=== PATIENT | female | born 1965 | race Caucasian/White ===

== ENCOUNTER 2021-01-13 11:26 | Day surgery (SDC) | payer BC ==
[2021-01-09 14:14] VITALS: BMI 28.5
[2021-01-13] MEDS ORDERED: BUPIVACAINE HCL 100 ML ONE (11:51)
[2021-01-13] MEDS ORDERED: LIDOCAINE HCL 2% (20ML MULTI-DOSE VIAL) ONE (11:51)
[2021-01-13] MEDS ORDERED: PROPOFOL 20 ML ONE ×2 (12:50)
[2021-01-13] MEDS ORDERED: MIDAZOLAM HCL 2 MG/2 ML SINGLE DOSE VIAL ONE (12:50)
[2021-01-13] MEDS ORDERED: oxyCODONE HCL 5 MG TABLET PO PRN ×2 (14:48)
[2021-01-13] MEDS ORDERED: PROMETHAZINE HCL 25 MG/1 ML VIAL IVPUSH PRN (14:48)
[2021-01-13] MEDS ORDERED: ONDANSETRON 4 MG/2 ML VIAL IVPUSH PRN (14:48)
[2021-01-13 15:12] VITALS: PULSE 60
[2021-01-13 15:21] VITALS: BP 115/67; TEMP 97
== END 2021-01-13 15:55 | disposition home or self-care (01) ==
LOC: FASU 11:26
PROVIDERS: ATTEND Podiatrist Foot Surgery
PROC: 3E0U3BZ Introduction of Anesthetic Agent into Joints, Percutaneous Approach (ICD-10-PCS; 2021-01-13)
PROC: 0QSN04Z Reposition Right Metatarsal with Internal Fixation Device, Open Approach (ICD-10-PCS; principal; 2021-01-13 13:14)
PROC: 0L8V0ZZ Division of Right Foot Tendon, Open Approach (ICD-10-PCS; 2021-01-13 13:14)
DX: M21.611 Bunion of right foot (principal); M20.41 Other hammer toe(s) (acquired), right foot
CPT/HCPCS: 73630-TC-RT-FY; 88304-TC; 88311-TC; 94760